=== PATIENT | female | born 1955 | race Caucasian/White ===

== ENCOUNTER 2018-06-01 11:30 | Outpatient (RCR) | payer BC, SELFPAY ==
--- NOTE | 2018-04-08 15:20 | HP.PTEVAL ---
Patient's Visit Information HANH STANFORD is a 62 year old F referred to Physical Therapy by SOFIA SMITH with a diagnosis of CLOSED DISPLACED LONGITUDINAL FX L PATELLA 02/28/18.. Date of Evaluation: 04/08/18 Physical Therapist: Carmen Holman PT, Cert MDT - Visit Plan Frequency: 2-3x /Week Duration: 4-6 Weeks Plan: LEFT LE MODALITIES NEEDED FOR PAIN AND SWELLING. GAIT TRAINING. JOSEPH LE ROM, STRETCHING AND STRENGTHENING TO HELP MEET SET GOALS. HEP INSTUCTION. START WITH AQUATIC THERAPY 3X'S A WEEK X 3 WEEKS THEN TRY TO PROGRESS TO LAND 3X'S A WEEK X 3 WEEKS. - Subjective Findings: Work/Leisure: [employer]. Disability: NO. Present symptoms: LEFT LATERAL INFERIOR ASPECT OF KNEE. SOMETIMES INSIDE OF KNEE HURTS TOO. LEFT THIGH AND KNEE WEAKNESS. SWELLING - GETTING BETTER. Present since: FEB 28 2018. Pain Scale: WORST 3/10, LEAST 0/10. Currently: 0/10 - IMPROVING OVER ALL AT THIS POINT. Commenced as a result of: SLIPPED IN PARKING LOT ON ICE. AT [facility]. Symptoms at onset: LEFT KNEE. Worse: KEEPING KNEE BENT TOO LONG, GOING DOWN STEPS. STANDING TOO LONG. SHOPPING. Better: NOT PUTTING ANY WEIGHT ON IT. RESTING. KEEPING IT ELEVATED. Disturbed sleep: YES. Previous history/Previous treatment: REST AND BRACE. REDUCED WEIGHT BEARING. PATIENT HAS HURT THIS KNEE IN THE PAST. 2007 SHE DISLOCATED HER KNEE CAP WHEN SHE SLIPPED ON ICE - PHYSICAL THERAPY. PATIENT REPORTS SHE NEVER FULLY REGAINED ALL KNEE FLEXION COMPARED TO RIGHT KNEE BUT WAS ABLE TO GO UP AND DOWN STEPS FINE AFTER A LONG RECOVERY. NO SURGERY ON KNEE AT ANY POINT. PATIENT REPORTS SHE HAS BEEN SEEING A CHIROPRACTOR SINCE 2016 FOR HER LEFT KNEE AND SCOLIOSIS. SHE WAS PRESCRIBED A BRACE FOR THE KNEE BY DR. VAN TOO. SINCE THE FX - SHE HAS CONTINUED TO SEE THE CHIROPRACTOR FOR TAPING OF HER KNEE, ACTIVE RELEASE TECHNIQUES AND MASSAGE. STATES THE CHIROPRACTOR HELPED HER GET OVER THE LOCKING UP OF HER KNEE THAT SHE WENT TO DR. VAN FOR. THE CHIROPRACTOR HAD HER STOP WEARING THE KNEE BRACE PRESCRIBED BY DR. VAN BACK IN 2016 AFTER ABOUT 3 MONTHS. Gait: ONLY ABLE TO BEND KNEE A LITTLE BIT WHEN SHE WALKS WITH A CRUTCH. JUST STARTED WALKING WITHOUT THE BRACE YESTERDAY. ALSO WENT FROM TWO CRUTCHES TO ONE YESTERDAY. KEEPS KNEE STIFF IF NO CRUTCH. HAS FEAR OF FALLING. Accidents: NO OTHER ACCIDENTS. Unexplained weight loss: NO. Imaging: X-RAY OF KNEE WEDNESDAY - STATES DR. LANGLEY SAID THE KNEE CAP IS 80% HEALED AND CAN WEAN FROM BRACE AND CRUTCHES. FOLLOW UP SCHEDULED IN A MONTH. PMH: SCOLIOSIS. PLOF (Prior Level of Function): MOSTLY UNLIMITED EXCEPT LACKING A LITTLE BIT OF KNEE FLEXION FROM 2008 FALL. ABLE TO HIKE AND TAKE DOGS FOR WALKS. ABLE TO RIDE BIKE BUT NOT ABLE TO RUN SINCE 2007. - Objective Sitting/Standing Posture: POOR. SLOUCHED POSTURE WITH FORWARD HEAD, ROUNDED SHOULDERS AND DECREASED WEIGHT BEARING ON LEFT LE. Other Observations: INDEP GAIT INTO PT WITH ONE CRUTCH WBAT ON LLE. DECREASED WEIGHT BEARING TIME LLE AND WITH DECREASED HEEL STRIKE AND TOE OFF PHASES OF GAIT. Motor deficit: RIGHT LE STRENGTH 5/5 EXCEPT HIP 4/5. LLE STRENGTH: HIP 3+/5, KNEE 2/5, ANKLE 4-/5. Sensory deficit: DECREASED LIGHT TOUCH SENSATION OF LEFT THIGH, KNEE AND LATERAL LEG COMPARED TO RIGHT. ROM deficit: -3 DEG EXT TO 54 DEG FLEX LEFT KNEE IN SUPINE WITH A HEEL SLIDE. Reflexes: NT. Core strength: POOR. Palpation: MODERATE EDEMA LEFT KNEE. PATIENT HAS TENDERNESS SURROUNDING THE ENTIRE PATELLA AND KNEE EXCEPT POSTERIORLY. - Goals Goal 1:: DECREASE LEFT LE EDEMA Goal Time Frame: 4-6 Weeks Goal 2:: IMPROVE STANDING, WALKING, STAIR CLIMBING, ADL, WORK AND SLEEP FUNCTION. Goal Time Frame: 4-6 Weeks Goal 3:: INDEP HEP Goal Time Frame: 4-6 Weeks Goal 4:: DECREASE C/O LEFT KNEE PAIN Goal Time Frame: 4-6 Weeks Goal 5:: INCREASE FUNCTIONAL ROM OF LEFT LE Goal Time Frame: 4-6 Weeks Goal 6:: INCREASE FUNCTIONAL STRENGTH OF LLE Goal Time Frame: 4-6 Weeks - Rehabilitation Potential Rehabilitation Potential: Fair - Anticipated Interventions Patient/Client Instruction: Educate patient on: Condition, Plan of Care, Risk Factors, Benefits of Fitness Program For the Purpose of:: To improve self management Therapeutic Exercise to Include: Strength training, Balance training, Flexibilty training, Gait and locomotor training, In an aquatic setting, Active ROM For the Purpose of:: To decrease pain, To decrease swelling/inflammation, To increase ROM, To improve muscle performance and motor function, To increase tolerance to activity/condition/position, To improve ability of physical actions for home/community/work/leisure, To improve gait and locomotor functions TENS: Yes IF ES: Yes Cryotherapy (ice pack, ice massage): Yes For the Purpose of:: To decrease pain, To decrease swelling/inflammation Thank you for the opportunity to evaluate your patient. For Medicare and Medicare HMO plans, please review the plan of care and approve it. It will need to be FAXED BACK to us at [phone] for Medicare purposes. For Medicare only, by signing this I certify the plan of care. Please let me know if there are questions or concerns regarding this plan of care. Physician Signature: Date:
--- NOTE | 2018-05-04 11:58 | HP.PTREVAL ---
SOFIA SMITH, It has been my pleasure to treat HANH STANFORD over the last 11 visits for CLOSED DISPLACED LONGITUDINAL FX L PATELLA 02/28/18.. Please see the progress note below for an update on the physical therapy plan of care! Subjective: PATIENT REPORTS SHE IS WALKING BETTER AND SHE CAN BEND HER KNEE BETTER. GETTING IN AND OUT OF THE CAR IS MUCH EASIER BUT STILL NEEDS TO BE CAREFUL. ABOUT TO CARRY THE LAUNDRY BASKET DOWN THE STEPS NOW TOO HANGING ON TO RAIL. PATIENT REPORTS SHE WOULD LIKE TO BE ABLE TO WALK HER DOGS AGAIN AND RIGHT NOW SHE CAN'T DUE TO DECREASED STRENGTH AND STABILITY. PATIENT REPORTS THE PAIN IS STILL ON THE LOWER OUTSIDE OF HER KNEE AND SOMETIMES ACROSS THE BOTTOM BUT PAIN COMES AND GOES RANGING 0-3/10. PATIENT REPORTS SHE LIKES THE WATER THERAPY AND FEELS IT IS HELPING. Objective/Function: PATIENT IS MAKING GOOD PROGRESS WITH LEFT KNEE ROM INCREASING FROM 54 DEGREES AT THE START OF THERAPY TO 100 DEG NOW. HER LEFT LE FUNCTIONAL STRENGTH IS ALSO IMPROVING. UPONE EXAM TODAY SHE DEMONSTRATES INDEP GAIT INTO PT WITHOUT AD. SHE WALKS WITH DECREASED CADANCE, DECREASED STRIDE LENGTH AND MIN DECREASED WEIGHT BEARING TIME LLE. GAIT IS MUCH IMPROVED COMPARED TO INITIAL EVAL. Motor deficit: LLE STRENGTH: HIP 4-/5, KNEE EXTENSION 3+/5, KNEE FLEX 3+/5 IN AVAILABLE ROM. Sensory deficit: DECREASED LIGHT TOUCH SENSATION OF LEFT THIGH AND KNEE COMPARED TO RIGHT BUT LOWER LEG SENSATION IS SYMMETRICAL NOW. ROM deficit: 0DEG EXT TO 100 DEG FLEX LEFT KNEE IN SUPINE WITH A HEEL SLIDE. Reflexes: NT. Core strength: POOR. Palpation: MODERATE EDEMA LEFT KNEE. PATIENT HAS TENDERNESS SURROUNDING THE ENTIRE PATELLA AND KNEE EXCEPT POSTERIORLY. SWELLING AND TENDERNESS HAVE IMPROVED BUT ARE STILL SIGNIFICANT. LEFS SCORE HAS IMPROVED FROM 24 TO 32 Plan Plan: CONTINUE PT 2X'S A WEEK IN THE WATER AND PROGRESSING TO ONE TIME A WEEK ON LAND X 4 WEEKS FOR CORE STENGTH AND STABILITY, LLE ROM, STRETCHING AND STRENGTHEING TO HELP MEET SET GOAL. HELP PATIENT BUILD HEP AND EDUCATE ON EQUIPMENT USAGE FOR STRENGTHENING APPROPRIATE AND ABLE TO PROGRESS Goals Goal 1:: DECREASE LEFT LE EDEMA Goal Time Frame: 4-6 Weeks Goal Progress: Progressing Goal 2:: IMPROVE STANDING, WALKING, STAIR CLIMBING, ADL, WORK AND SLEEP FUNCTION. Goal Time Frame: 4-6 Weeks Goal Progress: Progressing Goal 3:: INDEP HEP Goal Time Frame: 4-6 Weeks Goal Progress: Progressing Goal 4:: DECREASE C/O LEFT KNEE PAIN Goal Time Frame: 4-6 Weeks Goal Progress: Progressing Goal 5:: INCREASE FUNCTIONAL ROM OF LEFT LE Goal Time Frame: 4-6 Weeks Goal Progress: Progressing Goal 6:: INCREASE FUNCTIONAL STRENGTH OF LLE Goal Time Frame: 4-6 Weeks Goal Progress: Progressing Anticipated Interventions Patient/Client Instruction: Educate patient on: Condition, Plan of Care, Risk Factors, Benefits of Fitness Program For the Purpose of:: To improve self management Therapeutic Exercise to Include: Strength training, Balance training, Flexibilty training, Gait and locomotor training, In an aquatic setting, Active ROM For the Purpose of:: To decrease pain, To decrease swelling/inflammation, To increase ROM, To improve muscle performance and motor function, To increase tolerance to activity/condition/position, To improve ability of physical actions for home/community/work/leisure, To improve gait and locomotor functions TENS: Yes IF ES: Yes Cryotherapy (ice pack, ice massage): Yes For the Purpose of:: To decrease pain, To decrease swelling/inflammation Please do not hesitate to contact me at [phone] by phone or if you have questions or concerns regarding this new plan of care! Sincerely, Carmen oHlman PT, Cert MDT
--- NOTE | 2018-06-01 12:14 | HP.PTDCSUM ---
HP - PT D/C Summary It has been my pleasure to treat HANH STANFORD under orders from MayNK, for the diagnosis of CLOSED DISPLACED LONGITUDINAL FX L PATELLA 02/28/18. for a total of 23 visit(s). Discharge Date: Please see the following information for a summary of their discharge status. - Subjective Subjective: PATIENT REPORTS SHE IS 90% BETTER. STATES IT IS CONTINUEING TO IMPROVE. STATES SHE IS READY TO CONTINUE HER EX'S ON HER OWN NOW. HAS A QUESTION ABOUT BRIDGING EX. STATES HER KNEE IS STILL SWOLLEN. STATES THE TOLD HER TO COME BACK NEEDED AND THAT HE WANTS TO DO A TOTAL KNEE RPLM BUT SHE DOENS'T WANT TO TO THAT YET. - Pain L knee Pain Intensity (Out of 10): 1 - Overall Improvement % Improvement: 90 - Objective Objective/Function: ALL GOALS MET. PATIENT IS INDEP WITH WATER, GYM AND HOME EX'S NOW. PATIENT DOES CONTINUE TO HAVE LEFT KNEE EDEMA BUT HER STRENGTH AND ROM ARE IMPROVEING. LEFT KNEE ROM = FULL EXT TO 110 DEG FLEX NOW IN SUPINE WITH A HEEL SLIDE. LEFS HAS IMPROVED TO 41. - Goals Goal 1:: DECREASE LEFT LE EDEMA Goal Progress: Progressing Goal 2:: IMPROVE STANDING, WALKING, STAIR CLIMBING, ADL, WORK AND SLEEP FUNCTION. Goal Progress: Progressing Goal 3:: INDEP HEP Goal Progress: Progressing Goal 4:: DECREASE C/O LEFT KNEE PAIN Goal Progress: Progressing Goal 5:: INCREASE FUNCTIONAL ROM OF LEFT LE Goal Progress: Progressing Goal 6:: INCREASE FUNCTIONAL STRENGTH OF LLE Goal Progress: Progressing - Plan Plan: D/C TO INDEP EX AND I ENCOURAGED FOLLOW UP WITH DOCTOR NEEDED. PATIENT IS AGREEABLE. - D/C Information If there are questions or concerns regarding this patient's physical therapy, please feel free to call me at [phone]. Thank you for the referral of this patient. Sincerely, Carmen Holman, PT, Cert MDT
== END 2018-06-01 18:26 | disposition home or self-care (01) ==
LOC: PT 11:30
DX: S82.022D Displaced longitudinal fracture of left patella, subsequent encounter for closed fracture with routine healing (principal)
CPT/HCPCS: 97110; 97113; 97162; 97530